=== PATIENT | male | born 1940 | race Caucasian/White ===

== ENCOUNTER 2024-04-01 01:59 | Emergency (ER) | payer MEDICARE, SELFPAY ==
[2024-04-01] VITALS (7 sets, daily range): BP systolic 106–134; BP diastolic 66–82; BMI 32.5
--- NOTE | 2024-04-01 02:17 | ED.GENMED ---
History of Present Illness
General
Chief Complaint: Fall
Source: patient
Exam Limitations: none
Time Seen by Provider: 04/01/24 02:04
Travel History
Have you had any contact with someone who has COVID-19?: No
Do you have any symptoms of coronavirus? Fever > 100 degrees, chills, cough, shortness of breath, sore throat, loss of taste or smell, muscle aches, or headache?: No
History of Present Illness
History of Present Illness:
This is a 83 year old male that comes in by ambulance with c/o fall. States that he had to much to drink tonight. States that he had gone to the [place] and he couldn't get up. States that he tried to get off the Toilet and he well. States that he had no
LOC. States that he has right knee pain. Denies any fever, chills, chest pain, SOB, abd pain, nausea, vomiting, diarrhea, headache, dizziness, urinary burning.
Past History
Past History
ED Past Medical History: Arrthythmia (SVT, ), Cancer (Skin CA), GERD and Other ( GERD, Hernia, )
ED Past Surgical History: Cardiac (Cardiac ablation), Orthopedic (Right hammer toe, Right knee surgery) and Tonsilectomy
Patient has exhibited threatening behavior?: No
PSI?: No
Social History
Tobacco: Non-smoker
Alcohol: Chronic alcoholic (Daily Wine)
Drug: None
Personal:
Living: with family
Employment: Retired
Family History
Family History: Negative Early CAD, CAD or Sudden
Review of Systems
Review of Systems
All Other Systems: ROS reviewed and negative except as documented in HPI and ROS
Constitutional: Reports no symptoms; Denies fever or chills
EENT: Reports no symptoms
Respiratory: Denies cough or trouble breathing
Cardiac: Reports no symptoms; Denies chest pain
ABD/GI: Reports no symptoms; Denies abdominal pain, nausea, vomiting or diarrhea
: Reports no symptoms; Denies dysuria, frequency or urgency
Musculoskeletal: Reports joint pain (Right knee pain)
Skin: Reports no symptoms
Neurological: Reports weakness; Denies dizzy or headache
Psychiatric: Reports no symptoms
Phy Exam
General Physical Exam
General Presentation: no apparent distress
General age: appears stated age
General Skin: warm and dry
General Habitus: elderly
General Mental: alert
General Hydration: dry mucous membranes
ENT Exam
ENT Exam: TM's normal, pharynx normal and neck supple
Eye Exam
Eye Exam: EOMI
Cardiovascular Exam
Cardiovascular Exam: regular rate/rhythm and normal peripheral pulses
Pulmonary Exam
Pulmonary Exam: no respiratory distress, chest non tender, no rhonchi, no cough and other (Exp wheezing with rales at bases)
Gastrointestinal Exam
Gastrointestinal Exam: normal bowel sounds, non tender, soft, no organomegaly, no pulsatile mass, non distended and other (Umbilical hernia)
Musculoskeletal Exam
Musculoskeletal Exam: full ROM, edema (+1 pitting edema of the lower legs) and other (Negative for any cervical neck tenderness or spinal tenderness. Patient can cross over and abduct, flex elbows and move fingers and wrist. Discomfort with right
knee flexion. )
Skin Exam
Skin Exam: normal color, warm/dry, no rash, no petechia and other (Skin tear right elbow and abrasion to bilateral knee's)
Psychiatric Exam
Psychiatric Exam: normal mood/affect
Course
Orders/Labs/Results
Orders:
Orders
04/01/24 02:15
CT Cervical Spine W/o Iv Contr Urgent
Comment:
Reason For Exam: Fall,
CT Head W/o Iv Contrast Urgent
Comment:
Reason For Exam: Fall hitting head
04/01/24 02:16
Electrocardiogram (*1) Urgent
Reason for Study: Fatigue / Weakness
EKG- Treatment ONCE
Knee, Right 4 or More Views [CR Knee- Right 4 Or More View*] Urgent
Comment:
Reason For Exam: Fall, knee pain
04/01/24 02:18
Alcohol Urgent
Complete Blood Count/With Diff Urgent
Comprehensive Metabolic Panel Urgent
Abnormal Lab Results
04/01/24
02:18
RBC 4.41 L 10^6/uL
(4.70-6.10)
MCV 96.4 H fL
(80.0-94.0)
MCH 34.2 H pg
(27.0-31.0)
Absolute Monos (auto) 1.1 H 10^3/uL
(0.1-0.6)
Immature Gran % 0.6 H %
(0-0.5)
Monocytes % 14.7 H %
(1.7-9.3)
Carbon Dioxide 20 L mmol/L
(22-30)
Glucose 109 H mg/dl
(70-99)
04/01/24 02:18
04/01/24 02:18
Anemia, Carbon dioxide slightly low. Glucose nonfasting. Alcohol level 239
Vital Signs
Initial and Last Documented VS:
Initial Vital Signs
Temp Pulse Resp BP Pulse Ox
97.5 F 70 18 134/82 94
04/01/24 02:07 04/01/24 02:07 04/01/24 02:07 04/01/24 02:07 04/01/24 02:07
Last Documented Vital Signs
Temp Pulse Resp BP Pulse Ox
97.5 F 70 18 134/82 94
04/01/24 02:07 04/01/24 02:07 04/01/24 02:07 04/01/24 02:07 04/01/24 02:07
MDM/Problems Addressed
Differential Diagnosis Includes:
Alcohol intoxication,
MDM/Problems Addressed:
This is a 83 year old male that comes in by ambulance with c/o fall. States that he tried to get off the toilet and he was to weak. States that he couldn't get up. Told by EMS he was on the floor.
Will check labs, ECG, CT head and neck.
Back into see patient. Explained that the CT of his head and neck is negative for any acute process. His Blood work shows some anemia and his alcohol level shows that he was intoxicated. Patient will not come to get patient until morning. Will
discharge home in am. Patient to cut back on his alcohol intake. Follow up with the family doctor. Return with any concerns.
Chronic conditions affecting care:
Chronic alcohol abuse
Acute Exacerbation and/or Progression of Chronic Illness:
Chronic alcohol abuse
*Radiology
Radiology exam reviewed: preliminary read by ED provider (Right knee- Negative for fracture. Prosthesis noted and intact BS), radiology read reviewed (CT head and neck- night hawk- No hemorrhage or other evidence of trauma. Sequelae of chronic
microvascular disease. Global parenchymal volume loss. CT cervical spine: No acute osseous trauma. Alignment is intact. Craniocervical junction normal. Vertebral body heights are preserved. Multilevel) and other (Ct cont- degeneration. Biapical
lung scarring. )
*Pulse Oximetry
Patient hypoxic: no
*EKG
Interpreted by ED Provider?: Yes
Heart Rate: 63
Rate: normal
Rhythm: sinus
[place]: left axis deviation
Interval: first degree heart block
QRS Pattern: right bundle branch block
Ischemia: no ischemia
*Critical Care Note
Total Time (30-74mins, 75-104mins- exclusive of procedures): Not Applicable
ED Attending Note
-
Portions of this chart may have been created with voice recognition software.� Occasional wrong word or��sound alike� substitutions may have occurred due to the inherent limitations of voice recognition software.
Discharge Plan
Departure
Patient Disposition: Home (Routine Discharge)
Date of Disposition: 04/01/24
Time of Disposition: 03:45
Patient with high blood pressure during this ER visit?: Yes
Condition: Good
Covid-19: Not Applicable
Discharge Problem:
Accidental fall, Alcohol intoxication
Instructions: Preventing falls in adults, Alcohol Use Disorder (DC), Alcohol Intoxication ED, BLOOD PRESSURE
Prescriptions:
No Action
Metamucil Fiber Singles 1 PACKET powder in packet
1 packet PO DAILY
sennosides [senna] 8.6 mg Tablet
17.2 mg PO BID Qty: 30 0RF
Patient Comments:
pt no longer takes
thiamine HCl (vitamin B1) 100 mg Tablet
100 mg PO BID Qty: 0 0RF
folic acid 1 mg Tablet
1 mg PO DAILY Qty: 0 0RF
cephalexin 500 mg capsule
500 mg PO Q6H Qty: 20 0RF
furosemide [Lasix] 20 mg tablet
20 mg PO DAILY Qty: 30 0RF
Referrals:
Faustino Elizalde MD [Family Provider] - Call in 1-3 days for appt
Activity Restrictions/Additional Instructions:
As discussed, your blood work shows you are a little anemia. Please increase your water intake to 8-8oz glasses daily. You are very intoxicated. You need to decrease your alcohol intake. You have a skin tear on the right elbow and abrasions on the
knee's. Your X-ray of the right knee is negative for any fracture and your prosthesis is intact. Your CT of the head and cervical spine are normal. Please use ice to any area that is sore. Tylenol 1000mg every 6 hours for pain's. Follow up with the
family doctor for recheck. IF YOU HAVE ANY OTHER CONCERNS PLEASE RETURN TO THE EMERGENCY ROOM.
Interventions
Interventions:
*Risk Screen - Suicide Last Done: 04/01/24 02:07
*General Assessment Last Done: 04/01/24 02:07
*Neglect/Abuse Screening Last Done: 04/01/24 02:07
ED- Fall Risk Assessment Last Done: 04/01/24 02:14
*ED COVID-19 Vaccine History Last Done: 04/01/24 02:07
ED-Musculoskeletal Assessment Last Done: 04/01/24 02:14
ED- Neurological Assessment Last Done: 04/01/24 02:14
ED-Skin Assessment Last Done: 04/01/24 02:14
Discharge Date and Time
Print Language: MARSHALLESE
[2024-04-01 02:29] LABS: % Basophils 1.1 % (0-2); % Eosinophils 3.7 % (0-6); % Immature Granulocytes 0.6 % (0-0.5); % Lymphocytes 28.8 % (20.5-51.1); % Monocytes 14.7 % (1.7-9.3); % Neutrophils 51.1 % (42.2-75.2); Absolute Basophils 0.1 10^3/uL (0-0.2); Absolute Eosinophils 0.3 10^3/uL (0-0.7); Absolute Lymphocytes 2.1 10^3/uL (1.2-3.4); Absolute Monocytes 1.1 10^3/uL (0.1-0.6); Absolute Neutrophils 3.7 10^3/uL (1.4-6.5); Hematocrit 42.5 % (39.0-52.0); Hemoglobin 15.1 g/dL (13.0-18.0); Mean Corp Hgb Conc. 35.5 g/dL (33.0-37.0); Mean Corpuscular Hgb 34.2 pg (27.0-31.0); Mean Corpuscular Volume 96.4 fL (80.0-94.0); Mean Platelet Volume 9.9 fL (7.4-10.4); Nucleated Red Blood Cells % 0 % (-); Platelet Count 197 10^3/uL (130-400); Red Blood Cell Count 4.41 10^6/uL (4.70-6.10); Red Cell Dist. Width 12.4 % (11.5-14.5); White Blood Cell Count 7.2 10^3/uL (4.8-10.8)
[2024-04-01 02:42] LABS: ALT (SGPT) 40 U/L (0-50); AST (SGOT) 53 U/L (17-59); Albumin 4.3 g/dl (3.5-5.0); Alcohol 239 mg/dl; Alkaline Phosphatase 77 U/L (38-126); Blood Urea Nitrogen 13 mg/dl (9-20); Calcium 9.2 mg/dl (8.4-10.2); Carbon Dioxide 20 mmol/L (22-30); Chloride 99 mmol/L (98-107); Estimated Creatinine Clearance 84 ml/min; Glucose 109 mg/dl (70-99); Potassium 4.3 mmol/L (3.5-5.1); Sodium 135 mmol/L (135-145); Total Bilirubin 0.5 mg/dl (0.2-1.3); Total Protein 7.4 g/dl (6.3-8.2); eGFR > 60.00
--- NOTE | 2024-04-01 04:11 | EDRN ---
Skin tear on right elbow cleaned and dressed.
--- NOTE | 2024-04-01 06:30 | EDRN ---
Patient remains asleep, call alberto in reach, waiting on a ride home.
--- NOTE | 2024-04-01 06:59 | EDRN ---
Assumed care. Pt in ER 36. On monitor- NSR. VS monitored- WNL. Resp unlabored. Dressing noted to rt elbow wound, dry and intact. Side rails up x 2. Call alberto in lap. Urinal provided. Ice water obtained. Waiting on discharge transportation home. In
no distress. Sleeping when undisturbed
--- NOTE | 2024-04-01 07:28 | EDRN ---
Kulwinder placed to pt's - she will come and pick him up
--- NOTE | 2024-04-01 07:38 | EDRN ---
recalls that a 'good friend' recently. He remembers he couldn't get up from a fall. Did not realize he was at that time, intoxicated hich may have been a contributing factor.
--- NOTE | 2024-04-01 08:02 | EDRN ---
is here. Assisted with getting dressed,. Slow movements. Able to stand and bear weight and walk to the w/. I think he would benefit from a walker ( will obtain). Pt's aware that he is still under the influence of alcohol so he is
not yet at his baseline so fall risk/ safety is still a concern. INstructions reviewed with pt's .
--- NOTE | 2024-04-01 08:36 | EDRN ---
benjamin reeseifix found in bed after pt left. It belongs to Mr Charles Navarrete. called and notified. Sent to security ( labeled )
== END 2024-04-01 08:05 | disposition home or self-care (01) ==
LOC: EMR 01:59
PROVIDERS: Clinical Nurse Specialist Family Health; EMERGENCY PHYSICIAN Emergency Medicine; FAMILY PHYSICIAN Family Medicine
DX: F10.129 Alcohol abuse with intoxication, unspecified (principal); M25.561 Pain in right knee; W19.XXXA Unspecified fall, initial encounter; R03.0 Elevated blood-pressure reading, without diagnosis of hypertension
CPT/HCPCS: 99285; 70450; 72125; 73564; 80053; 82077; 85025; 93005

== ENCOUNTER → 2024-09-17 14:35 | Outpatient (REF) | payer MEDICARE, SELFPAY | LOC: PAVMRI 14:35 | PROVIDERS: ATTENDING PHYSICIAN Ophthalmology; FAMILY PHYSICIAN Family Medicine | DX: H47.233 Glaucomatous optic atrophy, bilateral (principal) | CPT/HCPCS: 70543; A9575 ==

== ENCOUNTER → 2025-04-07 16:29 | Outpatient (REF) | payer MEDICARE, SELFPAY | LOC: RAD 16:29 | PROVIDERS: ATTENDING PHYSICIAN Family Medicine | DX: M54.9 Dorsalgia, unspecified (principal) | CPT/HCPCS: 72072; 73010 ==

== ENCOUNTER → 2025-08-20 10:23 | Outpatient (REF) | payer MEDICARE, SELFPAY | LOC: HWRCS 10:23 | PROVIDERS: ATTENDING PHYSICIAN Internal Medicine Cardiovascular Disease; FAMILY PHYSICIAN Family Medicine | DX: I50.32 Chronic diastolic (congestive) heart failure (principal) | CPT/HCPCS: 93306 ==